=== PATIENT | male | born 1970 | race Caucasian/White ===

== ENCOUNTER 2022-01-31 17:31 | Inpatient (IN) | payer MEDICAID, SELFPAY ==
[2022-01-31] VITALS (33 sets, daily range): BP systolic 106–174; BP diastolic 65–104; PULSE 49–72; RESP 11–24; TEMP 36.1; O2SAT 95–100
--- NOTE | ~2022-01-31 | XR_ITS ---
XR chest 2V DATE: 01/31/2022 17:47 INDICATION: Upper left chest pain radiating down left arm. Headache. TECHNIQUE: PA and lateral views COMPARISON: None FINDINGS: Normal heart size. No hilar or mediastinal enlargement. No pulmonary infiltrate or consolid ation, pleural effusion or pulmonary vascular congestion or pneumothorax. Mild dextroscoliosis and degenerative spurring of the thoracic spine. IMPRESSION: No active cardiopulmonary disease Reviewed, dictated and finalized at location [facility].
--- NOTE | ~2022-01-31 | CT_ITS ---
EXAMINATION: CTA chest DATE: 01/31/2022 19:07 INDICATION: Chest pain radiating to left arm, back pain, shortness of breath, cold sweats. TECHNIQUE: Computed tomography (CT) of the chest was performed with 100 CC Omnipaque 350 intravenous contrast. Automated exposure control and iterative reconstruction technique were employed. Exam dose: 493.41 mGy-cm total exam DLP. COMPARISON: 01/31/2022 PA and lateral chest FINDINGS: Examination was optimized for contrast bolus in the thoracic aorta at time of scanning.. No thoracic aortic aneurysm or dissection. Normal heart size. No pericardial or pleural effusion. Calcified hilar and mediastinal nodes consistent with old granulomatous disease. No hilar or mediasti nal mass lesion or lymphadenopathy. No pulmonary infiltrate or consolidation or pulmonary mass lesion Normal morphology of the adrenal glands. Diffuse idiopathic skeletal hyperostosis of the thoracic spine. No suspicious osteolytic or osteoblas tic lesions are noted. IMPRESSION: No significant abnormality Reviewed, dictated and finalized at [facility]. Reviewed, dictated and finalized at location [facility]. IMPRESSION: No significant abnormality
--- NOTE | ~2022-01-31 | CT_ITS ---
EXAMINATION: CT brain wo con DATE: 01/31/2022 19:07 INDICATION: Headaches TECHNIQUE: Computed tomography (CT) of the head was performed without intravenous contrast. The mA wa s adjusted according to patient size. Iterative reconstruction technique was employed. Exam dose: 68 1.00 mGy-cm total exam DLP. COMPARISON: None FINDINGS: No intracranial mass lesion or hemorrhage or cerebrovascular accident. No midline shift or mass effect. Normal shaffer-white matter differentiation. Normal ventricular size. No subdural or epidur al hematoma is detected. The orbital contents are unremarkable. The mastoid air cells are normally developed and aerated. Prominent polyp or mucous retention cyst in the lower left maxillary sinus. Small retention cyst or p olyp in the lower right maxillary sinus. There is patchy opacification of ethmoid air cells bilateral ly and some opacification in the right frontoethmoid area. No fracture or bone destruction of the cranial vault. IMPRESSION: No significant intracranial abnormality Paranasal sinus findings as indicated above Reviewed, dictated and finalized at [facility]. Reviewed, dictated and finalized at location A.
--- NOTE | 2022-01-31 17:31 | ECG_ITS ---
Measurements Intervals [place] Rate: 54 P: 30 SD: 142 QRS: 4 QRSD: 100 T: 59 QT: 399 QTc: 380 Interpretive Statements SINUS BRADYCARDIA POSSIBLE RIGHT VENTRICULAR CONDUCTION DELAY [RSR (QR) IN V1/V2] NONSPECIFIC ST ABNORMALITY ABNORMAL ECG NO PREVIOUS ECG AVAILABLE FOR COMPARISON Electronically Signed On 02-01-2022 12:30:58 CDT by Jasiel Knight M.D.
--- NOTE | 2022-01-31 17:41 | ED.CHESTPAIN ---
HPI - Chest Pain General Chief Complaint: Chest Pain <JAXON Pavon Last Filed: 02/01/22 02:06> Stated Complaint: CHEST PAIN <JAXON Pavon Last Filed: 02/01/22 02:06> Time Seen by Provider: 01/31/22 17:36 <JAXON Pavon Last Filed: 02/01/22 02:06> Source: patient <JAXON Pavon Last Filed: 02/01/22 02:06> Mode of arrival: ambulatory <JAXON Pavon Last Filed: 02/01/22 02:06> Limitations: no limitations <JAXON Pavon Last Filed: 02/01/22 02:06> History of Present Illness HPI narrative: Patient is a 51-year-old male who presents the ED with report of chest pain. Patient reports he was driving approximately 45 minutes ago when he suddenly developed sharp left-sided chest pain. He began to not feel well and also reported having cold sweats, nausea, and SOB. The pain then began to radiate into his left shoulder and arm and he noted having numbness in his left fingers. He denied any aggravating or alleviating factors to the pain. He states the pain was rated a 10 out of 10 at first onset, but began to improve in the ED once going down to get x-ray, now rated 3-4/10. He denies any recent fever, back pain, cough, abdominal pain, vomiting, BLE pain or edema. Patient also mentions he has had intermittent headaches throughout the week. Patient has a history of diabetes and hypercholesteremia, but states he was able to control these with his diet. He does not currently take medication for either of these. <JAXON Pavon Last Filed: 02/01/22 02:06> Related Data Home Medications: Home Medications Medication Instructions Recorded Confirmed acetaminophen-codeine 1 tablet PO Q6H PRN 01/31/22 02/01/22 amoxicillin 500 mg PO Q8H 01/31/22 02/01/22 <JAXON Pavon Last Filed: 02/01/22 02:06> Allergies/Adverse Reactions: Allergies Allergy/AdvReac Type Severity Reaction Status Date / Time Penicillins Allergy Unknown Unknown Verified 01/31/22 18:03 <Miriam Cooper PA-C - Last Filed: 02/01/22 02:06> Review of Systems Review of Systems: CONSTITUTIONAL: Reports cold sweats. Denies fever. CARDIOVASCULAR: Reports left-sided chest pain, into the left shoulder/arm. Denies palpitations, or BLE edema. RESPIRATORY: Reports shortness of breath. Denies cough. GASTROINTESTINAL: Reports nausea. Denies abdominal pain, vomiting, or diarrhea. MUSCULOSKELETAL: Denies back pain, BLE pain, or myalgia. NEUROLOGIC: Reports numbness in left fingers, intermittent headache. Denies weakness. <Miriam Cooper PA-C - Last Filed: 02/01/22 02:06> All systems reviewed & are unremarkable except as noted in HPI and below <Miriam Cooper PA-C - Last Filed: 02/01/22 02:06> PMFSH Past Medical History Medical History: Medical History (Updated 02/01/22 @ 00:51 by Miriam Cooper PA-C) Diabetes mellitus Hypercholesterolemia <Miriam Cooper PA-C - Last Filed: 02/01/22 02:06> Surgical History Surgical History: Surgical History (Updated 01/31/22 @ 17:58 by Miriam Cooper PA-C) No pertinent past surgical history <Miriam Cooper PA-C - Last Filed: 02/01/22 02:06> Social History Social History: Social History (Updated 01/31/22 @ 17:58 by Miriam Cooper PA-C) Smoking status: Never smoker Substance use type: marijuana <Miriam Cooper PA-C - Last Filed: 02/01/22 02:06> Exam Narrative: GENERAL: Well appearing, well-nourished, non-toxic, in no acute distress. HEAD: Normocephalic, atraumatic. EYES: EOMI, PERRLA, no nystagmus. NECK: Supple. No adenopathy, no masses. RESPIRATORY: Airway patent, respirations nonlabored. Clear to auscultation bilaterally, no rales, rhonchi, wheezing. CARDIOVASCULAR: Bradycardic, regular rhythm without murmurs, rubs, or gallops. Peripheral pulses 2+ and equal bilaterally. ABDOMINAL: Soft, nontender, nondistended, no hepatosplenomegaly. Normoactive BS. MUSCULOSKELETAL: Moves all ex
[2022-01-31 18:04] LABS: Basophils Percent Auto 0.4 % (0.2-1.2); Eosinophils Absolute Auto 0.3 K/mm3 (0-0.3); Eosinophils Percent Auto 2.6 % (0-4.4); Hematocrit 41.1 % (42.0-52.0); Hemoglobin 14.4 g/dL (14.0-18.0); Immature Granulocyte Absolute 0.04 K/mm3 (0.00-0.031); Immature Granulocyte Percent A 0.4 % (0-0.5); Lymphocytes Absolute Auto 4.51 K/mm3 (0.9-3.2); Lymphocytes Percent Auto 46.5 % (18.3-44.2); Mean Corpuscular Hemoglobin 31.7 pg (26-34); Mean Corpuscular Volume 90.5 fl (80-100); Mean Platelet Volume 10.7 fl (7.4-10.4); Monocytes Absolute Auto 0.6 K/mm3 (0.1-0.6); Monocytes Percent Auto 6.4 % (2.6-8.5); Neutrophils Absolute Auto 4.2 K/mm3 (1.3-6.7); Neutrophils Percent Auto 43.7 % (45.5-73.1); Platelet Count Result 269 k/mm3 (150-375); Red Blood Count 4.54 M/mm3 (4.6-6.20); Red Cell Distribution Width 12.1 % (11.5-14.5); White Blood Count 9.7 K/mm3 (4.5-10.0)
[2022-01-31 18:17] LABS: Alanine Aminotransferase 31 U/L (4-50); Albumin Level 4.6 g/dL (3.5-5.1); Alkaline Phosphatase 86 U/L (38-126); Anion Gap 8 mmol/L (8-16); Aspartate Amino Transferase 27 U/L (17-59); Bilirubin,Total 0.7 mg/dL (0.2-1.3); Blood Urea Nitrogen 19 mg/dL (9-20); Carbon Dioxide 28 mmol/L (22-30); Chloride 100 mmol/L (98-107); Estimated CRCL calculation 90 ml/min; Estimated Glomerular Filt Rate > 60; Glucose 272 mg/dL (65-110); Lipase 72 U/L (23-300); Potassium 4.1 mmol/L (3.4-5.0); Sodium 136 mmol/L (137-145)
[2022-01-31 18:19] LABS: Prothrombin Time 12.5 Seconds (11.1-14.7)
[2022-01-31 18:20] LABS: Partial Thromboplastin Time 21.3 SECONDS (22.3-36.8)
[2022-01-31 18:27] LABS: Troponin I < 0.012 ng/mL (0.000-0.034)
[2022-01-31] MEDS: MORPHINE SULFATE (*CRX) 4 MG/ML INJ IV PUSH (18:41)
[2022-01-31] MEDS: ASPIRIN 81 MG CHEWABLE TABLET 324 MG PO (18:41)
[2022-01-31] MEDS: ONDANSETRON INJ 4 MG/2 ML VIAL IV PUSH (18:41)
[2022-01-31] MEDS: NITROGLYCERIN OINTMENT 1 INCH DOSE TRANSDERM (18:42)
[2022-01-31 18:47] LABS: D Dimer 0.27 ug/mL (<0.48)
[2022-01-31 21:23] LABS: Troponin I < 0.012 ng/mL (0.000-0.034)
--- NOTE | 2022-01-31 23:27 | ECG_ITS ---
Measurements Intervals [place] Rate: 51 P: 31 [place]: 158 QRS: 9 QRSD: 106 T: 13 QT: 432 QTc: 398 Interpretive Statements SINUS BRADYCARDIA POSSIBLE RIGHT VENTRICULAR CONDUCTION DELAY [RSR (QR) IN V1/V2] NONSPECIFIC T-WAVE ABNORMALITY ABNORMAL ECG COMPARED TO ECG 01/31/2022 17:35:02 T-WAVE ABNORMALITY NOW PRESENT Electronically Signed On 02-01-2022 12:35:39 CDT by Jasiel Knight M.D.
[2022-02-01] VITALS (28 sets, daily range): BP systolic 107–138; BP diastolic 58–79; PULSE 48–90; RESP 12–22; TEMP 35.9–37.1; O2SAT 97–100; BMI 21.1
[2022-02-01 00:15] LABS: Troponin I 0.096 ng/mL (0.000-0.034)
--- NOTE | 2022-02-01 01:26 | PM.IMHP ---
H&P: HPI History of Present Illness Date/Time: 02/01/22 01:26 Chief Complaint: Chest pain. Narrative: This is a 51-year-old male with past medical history significant for type 2 diabetes mellitus and dyslipidemia, patient is off of meds because he has been able to control his diet. Patient presents to the emergency room after sudden onset of chest pain localized to the precordial area with radiation to the shoulder and arm he rates the pain at the present time for out of 10 in intensity describe is as squeezing pain, patient denies any dizziness diaphoresis shortness of breath or any other accompanying symptoms with it. He has had daily headaches and blurry vision for roughly a week and has been having near syncopal episode as well but no syncope. Upon presentation to emergency room patient had nitro patch placed. Preliminary workup was significant for slightly elevated troponin. Patient is been admitted for further evaluation management and treatment. Review of Systems Review of Systems: Chest pain Constitutional: Constitutional: Denies chills, Denies fatigue, Denies fever(s), Denies lethargy, Denies night sweats and Denies weakness Eyes: Eyes: Reports blurry vision ENT: Denies dysphagia, Denies vertigo, Denies dizziness, Denies nasal congestion, Denies nasal discharge, Denies nasal obstruction and Denies odynophagia Cardiovascular: Cardiovascular: Reports chest pain, Denies chest pain at rest, Denies chest pain with activity, Denies pedal edema, Denies claudication, Denies leg edema, Reports radiating jaw, neck or arm pain, Denies palpitations, Denies dyspnea on exertion and Denies orthopnea Respiratory: Respiratory: Denies cough and Denies dyspnea Gastrointestinal: Gastrointestinal: Denies abdominal pain, Denies dyspepsia, Denies heartburn, Denies nausea and Denies vomiting Genitourinary: Genitourinary: Denies dysuria Musculoskeletal: Musculoskeletal: Denies arthralgias and Denies joint swelling Integumentary/Breasts: Skin/Breast: Denies rash Neurologic: Denies focal weakness and Denies Sensory deficit (Neuro) Psychiatric: Psychiatric: Reports no additional psychiatric complaints and Reports as per HPI Endocrine: Endocrine: Denies cold intolerance, Denies flushing, Denies heat intolerance, Denies polyphagia, Denies polydipsia and Denies palpitations Hematologic/Lymphatic: Hematologic/Lymphatic: Reports no additional hematologic/lymphatic complaints and Reports as per HPI Allergic/Immunologic: Allergic/Immunologic: Reports no additional allergic/immunologic complaints and Reports as per HPI PMFSH Past Medical History Medical History (Updated 02/01/22 @ 03:05 by Kasi Collado MD) Diabetes mellitus Hypercholesterolemia Surgical History Surgical History (Updated 01/31/22 @ 17:58 by Miriam Cooper PA-C) No pertinent past surgical history Family History Family History (Updated 02/01/22 @ 02:34 by Vernell Tilley RN) Father Diabetes mellitus Mother Hypertension Social History Social History (Updated 01/31/22 @ 17:58 by SUMIT PavonC) Smoking status: Former smoker Alcohol intake: current Drinks per week: 3 Substance use: current Substance use type: marijuana Spiritual care concerns: No Meds Home Medications and Allergies Home Medications Medication Instructions Recorded Confirmed Type acetaminophen-codeine 1 tablet PO Q6H PRN 01/31/22 02/01/22 History amoxicillin 500 mg PO Q8H 01/31/22 02/01/22 History hydrocodone-acetaminophen 1 tablet PO BID PRN 02/01/22 02/01/22 History Allergies Allergy/AdvReac Type Severity Reaction Status Date / Time Penicillins Allergy Unknown Unknown Verified 01/31/22 18:03 Vital Signs Vital Signs - 24 hr 01/31/22 17:38 01/31/22 18:22 01/31/22 18:31 Temperature 97 F L Pulse Rate 58 L 67 63 Respiratory Rate 16 17 24 H Blood Pressure 142/85 H 159/101 H 174/104 H Pulse Oximetry 100 100 100 01/31/22 18:32 01/31/22 19:09 0
[2022-02-01] MEDS: ENOXAPARIN 80 MG/0.8 ML SYRINGE 77 MG SUB-Q (01:45)
--- NOTE | 2022-02-01 01:45 | PC.NURSE ---
Sbar faxed and tubed to IMU for room 211.
--- NOTE | 2022-02-01 02:04 | PC.NURSE ---
This patient, Rafy Sommer, was admitted to IMU Room 211-01. Patient/family oriented to hospital policies and general routines including ID bracelet, bed and alarms, visiting hours, pain management, procedures, bathroom and other care routines, personal items, smoking policy, room service/diet, and visiting hours. Information on how to activate the Rapid Response Team has been discussed. Patient/Family are encouraged to report perceived risks to care and to ask questions if they do not understand what they are told or what they should do.
--- NOTE | 2022-02-01 02:08 | ADMGEN ---
This patient, Rafy Sommer, was admitted to IMU Room 211-01 on 02/01/22 at 0204. Patient/family oriented to hospital policies and general routines including ID bracelet, bed and alarms, visiting hours, pain management, procedures, bathroom and other care routines, personal items, smoking policy, room service/diet, and visiting hours. Information on how to activate the Rapid Response Team has been discussed. Patient/Family are encouraged to report perceived risks to care and to ask questions if they do not understand what they are told or what they should do.
--- NOTE | 2022-02-01 07:21 | PC.NURSE ---
Dr. Gerardo and Dr. Knight notified of critical Troponin 2.960, pt to remain NPO at this time. RN will continue to monitor.
--- NOTE | 2022-02-01 07:40 | PM.IMPN ---
Progress Note: A&P Assessment and Plan (1) Acute non-ST elevation myocardial infarction (NSTEMI): Code(s): I21.4 - Non-ST elevation (NSTEMI) myocardial infarction Status: Acute Assessment and Plan: troponin peaked to 2.96. cardiology consutled. awit their recs received lovenox last night. received aspirin. CTA negative PE, CXR negative. (2) Bradycardia: Code(s): R00.1 - Bradycardia, unspecified Status: Acute Assessment and Plan: Sinus bradycardia Continue to monitor (3) Diabetes mellitus: Code(s): E11.9 - Type 2 diabetes mellitus without complications Status: Acute Assessment and Plan: Diet controlled Continue to monitor add SSI. check a1c (4) Hypercholesterolemia: Code(s): E78.00 - Pure hypercholesterolemia, unspecified Status: Acute Assessment and Plan: Diet controlled Continue to monitor check LDL Subjective Date/time seen: 02/01/22 07:40 Interval history: HPI: This is a 51-year-old male with past medical history significant for type 2 diabetes mellitus and dyslipidemia, patient is off of meds because he has been able to control his diet. Patient presents to the emergency room after sudden onset of chest pain localized to the precordial area with radiation to the shoulder and arm he rates the pain at the present time for out of 10 in intensity describe is as squeezing pain, patient denies any dizziness diaphoresis shortness of breath or any other accompanying symptoms with it. He has had daily headaches and blurry vision for roughly a week and has been having near syncopal episode as well but no syncope. Upon presentation to emergency room patient had nitro patch placed. Preliminary workup was significant for slightly elevated troponin. Patient is been admitted for further evaluation management and treatment. 02/01/2022 no overniht events. denies any chest pain. feels a lot better. no nausea, vomitgn Review of Systems Review of Systems: All systems reviewed & are unremarkable except as noted in HPI and below (HPI) Exam Narrative: GENERAL: The patient is well developed, not in acute distress HEENT: Nonicteric sclerae, PERRLA, EOMI. Oropharynx clear. Moist mucous membranes. Conjunctivae appear well perfused. CHEST: Chest wall is nontender. HEART: Regular rate and rhythm without murmur, rubs, or gallops LUNGS: Clear to auscultation bilaterally. no respiratory distress ABDOMEN: Soft, positive bowel sounds, non-tender, no organomegaly. SKIN: No rash, no excessive bruising, petechiae, or purpura. NEUROLOGIC: Cranial nerves II-XII intact, alert and oriented x 3, no gross motor deficits EXTREMITIES: no edema, cyanosis or clubbing Objective Data Vital Signs Vital Signs: Vital Signs - 24 hr 01/31/22 17:38 01/31/22 18:22 01/31/22 18:31 Temperature 97 F L Pulse Rate 58 L 67 63 Respiratory Rate 16 17 24 H Blood Pressure 142/85 H 159/101 H 174/104 H Pulse Oximetry 100 100 100 01/31/22 18:32 01/31/22 19:09 01/31/22 19:16 Temperature Pulse Rate 63 63 Respiratory Rate 21 H 14 Blood Pressure 139/84 Pulse Oximetry 100 100 100 01/31/22 19:17 01/31/22 19:30 01/31/22 19:31 Temperature Pulse Rate 65 60 60 Respiratory Rate 13 15 14 Blood Pressure 138/86 Pulse Oximetry 100 95 97 01/31/22 19:54 01/31/22 19:58 01/31/22 20:13 Temperature Pulse Rate 61 60 66 Respiratory Rate 14 11 L Blood Pressure Pulse Oximetry 97 98 01/31/22 20:15 01/31/22 20:17 01/31/22 20:30 Temperature Pulse Rate 58 L 64 58 L Respiratory Rate 17 18 16 Blood Pressure 125/76 124/78 Pulse Oximetry 96 97 97 01/31/22 20:31 01/31/22 20:45 01/31/22 20:46 Temperature Pulse Rate 62 72 61 Respiratory Rate 14 19 16 Blood Pressure 111/65 Pulse Oximetry 98 96 97 01/31/22 21:06 01/31/22 21:15 01/31/22 21:33 Temperature Pulse Rate 59 L Respiratory Rate 16 Blood Pressure Pulse Oximetry 99 98 98 01/31/22
[2022-02-01] MEDS: AMOXICILLIN 500 MG CAPSULE PO (08:13)
[2022-02-01] MEDS: ACETAMINOPHEN/CODEINE (*CRX) 300/30 MG TABLET 1 TAB PO (08:14)
[2022-02-01 08:49] LABS: Cholesterol 278 mg/dL (0-200); HDL Direct 40 mg/dL; Triglycerides 274 mg/dL (<150)
[2022-02-01 09:00] LABS: LDL Cholesterol Direct 179 mg/dL
[2022-02-01] MEDS: ASPIRIN 81 MG ENTERIC TABLET PO (09:27)
--- NOTE | 2022-02-01 09:43 | PM.CNCAR ---
Assessment and Plan Assessment and plan (1) Acute non-ST elevation myocardial infarction (NSTEMI): Code(s): I21.4 - Non-ST elevation (NSTEMI) myocardial infarction Status: Acute Assessment and Plan: Patient has sustained a non ST elevation myocardial infarction. He has several risk factors for coronary disease which are uncontrolled. Three my order, I did give him 1 milligram/kilogram of enoxaparin last night. Nitroglycerin paste is in place. Aspirin 81 mg p.o. daily to be continued. I will also start him on rosuvastatin 20 mg p.o. daily. Will start losartan 12.5 mg p.o. daily also. He is a bit bradycardic and will hold off on metoprolol this point. I talked him about the risks benefits alternatives of cardiac catheterization. He verbalized understanding is agreeable. He will be kept NPO and coronary angiogram to be performed today. I will also order 2D echocardiogram with Doppler (2) Hypertension associated with diabetes: Code(s): E11.59 - Type 2 diabetes mellitus with other circulatory complications; I15.2 - Hypertension secondary to endocrine disorders Status: Acute Assessment and Plan: As detailed above. Diabetic management be deferred to the hospitalist. Will start losartan for BP control. (3) Hyperlipidemia associated with type 2 diabetes mellitus: Code(s): E11.69 - Type 2 diabetes mellitus with other specified complication; E78.5 - Hyperlipidemia, unspecified Status: Acute Assessment and Plan: Starting rosuvastatin (4) Tooth infection: Code(s): K04.7 - Periapical abscess without sinus Status: Acute Assessment and Plan: He has been on antibiotics for a couple of days. His white count is normal and he is not feverish. I did talk to the hospitalist will start him on IV antibiotics Edwina procedure History of Present Illness History of Present Illness Consult date/time: 02/01/22 09:43 Requesting physician: Miriam Cooper PA-C Consult reason: chest pain Reason For Visit: NSTEMI Narrative: Reason consultation: Non-STEMI, chest pain Date of service 02/01/2022 Requesting provider: Miriam Cooper History: Patient is a 51-year-old male who has diabetes and hyperlipidemia. He has been off medications for quite some time because previously he had really controlled his diet reportedly and had improved his numbers significantly to the point that his primary care provider took him off medications. He does readily admit though that over the past several months he has not been paying as much attention to his diet. His A1c was 11. He has been dealing with a tooth infection and was started on amoxicillin 2 days ago. LDL is also markedly elevated. He came to the hospital because of severe crushing chest pain. He states over the past week he was more short of breath and what he typically is with activity. 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 Yesterday though at about 4:30 p.m. he developed sudden onset of chest pain. It became very severe with radiation down the left arm into the fingers. He had numbness into the hand as well as pounding on the left side of his head. He was also nauseated, short of breath and diaphoretic. He came to the hospital and has since ruled in for myocardial infarction. Troponins are up trending. He has much improved symptoms but still has some slight residual discomfort. Review of Systems Review of Systems: All systems reviewed & are unremarkable except as noted in HPI and below Constitutional: Constitutional: Denies weakness Eyes: Eyes: Denies blurry vision ENT: Comments: Tooth pain Cardiovascular: Cardiovascular: Reports chest pain Respiratory: Respiratory: Reports dyspnea Gastrointestinal: Gastrointestinal: Denies abdominal pain Genitourinary: Genitourinary: Denies dysuria Musculoskeletal: Musculoskeletal: Denies neck
[2022-02-01] MEDS: SODIUM CHLORIDE 0.9% IV 1,000 ML 100 ML IV CONT (10:07)
[2022-02-01] MEDS: ROSUVASTATIN 10 MG TABLET 20 MG PO (10:30)
[2022-02-01] MEDS: AMPICILLIN SULB 3 GM/NS 100 ML 3 GM/100 ML VIAL IVPB ×3 (10:31→20:59)
--- NOTE | 2022-02-01 14:23 | WPDCARDPROC ---
Cardiac Cath Procedure Note Date of procedure:: 02/01/22 Performing physician:: Jah aRder MD Assessment and Plan Additional Plan PROCEDURE 1. LHC and Coronary anngiogram 2. PCI of subtotal occlusion of LCX culprit lesion of NSTEMI 3. IFR to LAD INDICATION NSTEMI HISTORY 51 Yrs old male presented with acute chest pain and found to have elevated troponin PROCEDURE DETAILS Consent was obtained Access site prepped and draped for procedure; Rt Radial Time out was done Sedation: moderate sedation with versed 1 mg and fentanyl 100 mcg, start time 13:22 and end time 14:17. Patient was under my supervision along with certified legal secretary specialist obtained with modified Seldinger technique Coronary angiogram was done with Tig catheter CORONARY ANGIOGRAM Left main: Bifurcates into LAD and LCX LAD: large vessel that reaches to apex and gives one large diagonal branch. LAD has mid 60% lesion LCX: Large non dominant and gives one large OM branch. distal LCX after OM has 99% lesion culprit lesion of NSTEMI RCA: Dominant vessel that gives rPDA and rPL Proximal RCA has 60% stenosis CORONARY INTERVENTION Guide catheter: CLS 3.5 Guide wire: Delectableurai used to cross to distal vessel under fluroscopy Anticoagulation: Heparin with target ACT > 250 sec Balloon dilation with done with NC quantum 2.5 * 15 mm balloon Stent was done with Orsiro 2.25 * 22 mm at lesion at 16 ALEJANDRO Post stent balloon dilation with NC quantum at 18 ALEJANDRO Pre-intervention: distal LCX lesion type B 99% stenosis, not previusly treated Post intervention: GUS 3 flow and 0 residual stenosis IFR to LAD IFR wire crossed to distal LAD after equalization and IFR measured at 0.90 COMPLICATIONS None CONCLUSIONS Successful PCI to distal LCX with one EMEKA Orsiro 2.25 * 22 mm post dilated with 2.5 NC balloon Moderate disease in LAD and RCA RECOMMENDATIONS DAPT TTE Statin
[2022-02-01 14:26] LABS: Activated Clotting Time 250 SEC (74-137)
[2022-02-01 14:26] LABS: Activated Clotting Time 202 SEC (74-137)
[2022-02-01] MEDS: SODIUM CHLORIDE 0.9% IV 1,000 ML 125 ML IV CONT (15:18)
--- NOTE | 2022-02-01 16:52 | PC.NURSE ---
Air removal from TR band began, will continue to monitor following hospital protocol.
[2022-02-01] MEDS: INSULIN ASPART (*BKC) 100 UNITS/ML SUB-Q (17:16)
[2022-02-01 17:32] LABS: Glucose Point of Care 206 mg/dl (65-105)
[2022-02-01 18:19] LABS: Glucose Point of Care 330 mg/dl (65-105)
--- NOTE | 2022-02-01 18:29 | PC.NURSE ---
1814 TR band removed from right radial site. Puncture CDI, no new drainage noted, area soft without s/s of hematoma. Tegaderm dressing applied. Pt tolerated well, will continue to monitor.
[2022-02-01 20:10] LABS: Glucose Point of Care 295 mg/dl (65-105)
[2022-02-01] MEDS: TICAGRELOR 90 MG TABLET PO (20:58)
[2022-02-01] MEDS: METOPROLOL TARTRATE 25 MG TABLET PO (20:58)
[2022-02-02] VITALS (9 sets, daily range): BP systolic 121–127; BP diastolic 66–79; PULSE 52–68; RESP 14–18; TEMP 36.6–36.8; O2SAT 98–99
--- NOTE | 2022-02-02 | ECHO_ITS ---
Patient Info Name: Rafy Sommer Age: 51 years : 1970 Gender: Male Ht: 70 in Wt: 143 lbs BSA: 1.78 m2 HR: 60 bpm BP: 121 / 66 mmHg Heart Rhythm: Sinus Rhythm Exam Date: 02/02/2022 8:33 AM Exam Location: [facility] Patient Status: Inpatient Admit Date: 02/01/2022 Staff Ordering Physician: Jasiel Knight MD Device Sales Consultant: Michelet Mcmullen, KOBI, RT Attending Provider: Jan Gerardo MD Referring Physician: Antonia GRIFFIN; Exam Type: CA echo doppler color flow Study Info Indications I21.4 - Non-ST elevation (NSTEMI) myocardial infarction Complete two-dimensional, color flow and Doppler transthoracic echocardiogram is performed. Strain analysis performed. Summary 1. Complete two-dimensional, color flow and Doppler transthoracic echocardiogram is performed. 2. Strain analysis performed. 3. Left ventricular chamber dimension is normal. 4. Left ventricular systolic function is normal, estimated at 60-65%. 5. There is mildly increased left ventricular wall thickness. 6. The left ventricular diastolic function is normal. 7. Global longitudinal strain is normal at -20 %. 8. The mid inferoseptal is hypokinetic. 9. There is mild mitral valve regurgitation. Left Ventricle Left ventricular chamber dimension is normal. Left ventricular systolic function is normal, estimated at 60-65%. There is mildly increased left ventricular wall thickness. The left ventricular diastolic function is normal. Global longitudinal strain is normal at -20 %. The mid inferoseptal is hypokinetic. Right Ventricle Right ventricular chamber dimension is normal. Right ventricular systolic function is normal. Left Atria Left atrial chamber dimension is normal. Right Atria Right atrial chamber dimension is normal. Atrial Septum Intact interatrial septum visualized by color flow imaging. Aortic Valve The aortic valve is trileaflet. There is no aortic valve sclerosis. There is no aortic valve stenosis. There is trace aortic valve regurgitation. Pulmonic Valve The pulmonic valve is normal. There is no pulmonic valve stenosis. There is trace pulmonic regurgitation. Mitral Valve The mitral valve has normal leaflets. There is no mitral valve stenosis. There is mild mitral valve regurgitation. Tricuspid Valve The tricuspid valve leaflets are normal. There is no significant tricuspid valve stenosis. There is trace tricuspid valve regurgitation. Pericardium/Pleural The pericardium appears normal. There is no pericardial effusion. Inferior Vena Cava Normal inferior vena cava with <50% collapse upon inspiration consistent with elevated right atrial pressure, 10 mmHg. Aorta The aortic root size at the sinus of Valsalva is normal. Left Ventricular Outflow Tract Name Value Normal LVOT 2D LVOT Diameter 2.0 cm LVOT Doppler LVOT Peak Gradient 8 mmHg LVOT Mean Gradient 4 mmHg LVOT VTI 26 cm LVOT VTI/AV VTI Ratio 1.0 LVOT Stroke Volume 83
[2022-02-02] MEDS: AMPICILLIN SULB 3 GM/NS 100 ML 3 GM/100 ML VIAL IVPB ×2 (04:10→09:05)
[2022-02-02 08:19] LABS: Glucose Point of Care 219 mg/dl (65-105)
[2022-02-02 08:55] LABS: Basophils Percent Auto 0.4 % (0.2-1.2); Eosinophils Absolute Auto 0.2 K/mm3 (0-0.3); Eosinophils Percent Auto 1.9 % (0-4.4); Hematocrit 39.6 % (42.0-52.0); Hemoglobin 13.6 g/dL (14.0-18.0); Immature Granulocyte Absolute 0.04 K/mm3 (0.00-0.031); Immature Granulocyte Percent A 0.5 % (0-0.5); Lymphocytes Absolute Auto 2.21 K/mm3 (0.9-3.2); Lymphocytes Percent Auto 26.6 % (18.3-44.2); Mean Corpuscular HGB Conc 34.3 g/dl (32-36); Mean Corpuscular Hemoglobin 31.7 pg (26-34); Mean Corpuscular Volume 92.3 fl (80-100); Mean Platelet Volume 10.5 fl (7.4-10.4); Monocytes Absolute Auto 0.7 K/mm3 (0.1-0.6); Monocytes Percent Auto 8.9 % (2.6-8.5); Neutrophils Absolute Auto 5.1 K/mm3 (1.3-6.7); Neutrophils Percent Auto 61.7 % (45.5-73.1); Platelet Count Result 206 k/mm3 (150-375); Red Blood Count 4.29 M/mm3 (4.6-6.20); Red Cell Distribution Width 12.1 % (11.5-14.5); White Blood Count 8.3 K/mm3 (4.5-10.0)
[2022-02-02] MEDS: TICAGRELOR 90 MG TABLET PO (08:55)
[2022-02-02] MEDS: ASPIRIN 81 MG ENTERIC TABLET PO (08:56)
[2022-02-02] MEDS: ROSUVASTATIN 10 MG TABLET 20 MG PO (08:56)
[2022-02-02] MEDS: METOPROLOL TARTRATE 25 MG TABLET PO (08:56)
[2022-02-02] MEDS: LOSARTAN POTASSIUM 12.5 MG TABLET PO (08:56)
[2022-02-02] MEDS: INSULIN ASPART (*BKC) 100 UNITS/ML SUB-Q ×2 (09:00→13:24)
[2022-02-02 09:06] LABS: Anion Gap 1 mmol/L (8-16); Blood Urea Nitrogen 11 mg/dL (9-20); Calcium 8.6 mg/dL (8.4-10.2); Carbon Dioxide 29 mmol/L (22-30); Chloride 105 mmol/L (98-107); Estimated CRCL calculation 104 ml/min; Estimated Glomerular Filt Rate > 60; Glucose 216 mg/dL (65-110); Magnesium 1.9 mg/dL (1.6-2.3); Potassium 3.9 mmol/L (3.4-5.0); Sodium 135 mmol/L (137-145)
--- NOTE | 2022-02-02 09:45 | PM.PNCARD ---
Progress Note: A&P Assessment and Plan (1) Acute non-ST elevation myocardial infarction (NSTEMI): Code(s): I21.4 - Non-ST elevation (NSTEMI) myocardial infarction Status: Acute Assessment and Plan: Patient has sustained a non ST elevation myocardial infarction. He has several risk factors for coronary disease which are uncontrolled. Underwent PCI to the circumflex artery yesterday details as below. Continue aspirin Continue Brilinta. He has been provided with free samples and a 5 dollar co-pay card. Continue losartan Continue metoprolol-this can be shifted to succinate upon discharge Continue statin Lifestyle modifications for CAD risk reduction Echocardiogram showed normal systolic function, EF 60-65%. No significant valve abnormalities. Stable for discharge home today from a cardiac perspective. (2) Hypertension associated with diabetes: Code(s): E11.59 - Type 2 diabetes mellitus with other circulatory complications; I15.2 - Hypertension secondary to endocrine disorders Status: Acute Assessment and Plan: As detailed above. Diabetic management be deferred to the hospitalist. Will start losartan for BP control. (3) Hyperlipidemia associated with type 2 diabetes mellitus: Code(s): E11.69 - Type 2 diabetes mellitus with other specified complication; E78.5 - Hyperlipidemia, unspecified Status: Acute Assessment and Plan: Starting rosuvastatin (4) Tooth infection: Code(s): K04.7 - Periapical abscess without sinus Status: Acute Assessment and Plan: He has been on antibiotics for a couple of days. His white count is normal and he is not feverish. Received IV antibiotics torsten-procedurally Additional Plan PROCEDURE 1. LHC and Coronary anngiogram 2. PCI of subtotal occlusion of LCX culprit lesion of NSTEMI 3. IFR to LAD INDICATION NSTEMI HISTORY 51 Yrs old male presented with acute chest pain and found to have elevated troponin PROCEDURE DETAILS Consent was obtained Access site prepped and draped for procedure; Rt Radial Time out was done Sedation: moderate sedation with versed 1 mg and fentanyl 100 mcg, start time 13:22 and end time 14:17. Patient was under my supervision along with sap data analyst obtained with modified Seldinger technique Coronary angiogram was done with Tig catheter CORONARY ANGIOGRAM Left main: Bifurcates into LAD and LCX LAD: large vessel that reaches to apex and gives one large diagonal branch. LAD has mid 60% lesion LCX: Large non dominant and gives one large OM branch. distal LCX after OM has 99% lesion culprit lesion of NSTEMI RCA: Dominant vessel that gives rPDA and rPL Proximal RCA has 60% stenosis CORONARY INTERVENTION Guide catheter: CLS 3.5 Guide wire: Tci used to cross to distal vessel under fluroscopy Anticoagulation: Heparin with target ACT > 250 sec Balloon dilation with done with NC quantum 2.5 * 15 mm balloon Stent was done with Orsiro 2.25 * 22 mm at lesion at 16 ALEJANDRO Post stent balloon dilation with NC quantum at 18 ALEJANDRO Pre-intervention: distal LCX lesion type B 99% stenosis, not previusly treated Post intervention: GUS 3 flow and 0 residual stenosis IFR to LAD IFR wire crossed to distal LAD after equalization and IFR measured at 0.90 COMPLICATIONS None CONCLUSIONS Successful PCI to distal LCX with one EMEKA Orsiro 2.25 * 22 mm post dilated with 2.5 NC balloon Moderate disease in LAD and RCA RECOMMENDATIONS DAPT TTE Statin Subjective Date/time seen: 02/02/22 09:45 Cardiology follow up for NSTEMI I feel great. Patient does not have any complaints today. He is denying any chest pain, shortness of breath. He was stable overnight with no acute events. No ectopy on telemetry. Review of Systems Review of Systems: All systems reviewed & are unremarkable except as noted in HPI and below Constitutional: Constitutional: Denies fatigue, Denies headache(s) and Denies weakne
[2022-02-02 12:18] LABS: Glucose Point of Care 206 mg/dl (65-105)
[2022-02-02] MEDS: INSULIN ASPART (*BKC) 100 UNITS/ML 6 UNITS SUB-Q (13:25)
--- NOTE | 2022-02-02 14:58 | PM.DS ---
DS: Admitting Diagnosis Discharge Date 02/02/2022 Admitting Diagnosis NSTEMI DS: Discharge Diagnosis Discharge Diagnosis (1) Acute non-ST elevation myocardial infarction (NSTEMI): Code(s): I21.4 - Non-ST elevation (NSTEMI) myocardial infarction Status: Acute (2) Diabetes mellitus: Code(s): E11.9 - Type 2 diabetes mellitus without complications Status: Acute (3) Tooth infection: Code(s): K04.7 - Periapical abscess without sinus Status: Acute (4) Hyperlipidemia associated with type 2 diabetes mellitus: Code(s): E11.69 - Type 2 diabetes mellitus with other specified complication; E78.5 - Hyperlipidemia, unspecified Status: Acute DS: Summary Hospital Course Hospital Course: 11-year-old male with past medical history significant for type 2 diabetes mellitus and dyslipidemia, patient is off of meds because he has been able to control his diet presented with chest pain, found to have NSTEMI, cardiology was consulted, underwent LHC with PCI to circumflex. Post cath stay was unremarkable. Stated on insulin therapy for his uncontrolled diabetes mellitus. Discharged home in stable condition Status at Discharge Functional status at discharge: independent ambulation Overall status at discharge: patient is back to baseline Time Spent with Patient Time attestation: Total time spent providing and/or coordinating discharge services: Time spent: Greater than 30 minutes Exam Const: General: comfortable and no acute distress Limitations: no limitations HENMT: Mouth: Yes Abnormal oral and palatal mucosa present Eyes: Sclera: sclerae normal Pupils: Equal, round and reactive pupils present Neck: Neck: supple Resp: Auscultation: clear to auscultation bilaterally Cardio: Rate: regular rate Rhythm: regular rhythm GI: GI Palp: Yes Soft to palpation Auscultation: normal bowel sounds Skin: General skin exam: normal color Psych: Mental Status: mental status grossly normal DS: Data Data Completed and Pending Labs on day of discharge: Labs from last 24 hours 02/02/22 02/02/22 02/02/22 11:44 08:47 08:47 WBC 8.3 RBC 4.29 L Hgb 13.6 L Hct 39.6 L MCV 92.3 MCH 31.7 MCHC 34.3 RDW 12.1 Plt Count 206 MPV 10.5 H Immature Gran % (Auto) 0.5 Neut % (Auto) 61.7 Lymph % (Auto) 26.6 [place] % (Auto) 8.9 H Eos % (Auto) 1.9 Baso % (Auto) 0.4 Lymph # (Auto) 2.21 [place] # (Auto) 0.7 H Eos # (Auto) 0.2 Baso # (Auto) 0.0 Abs Immat Gran (auto) 0.04 H Absolute Neuts (auto) 5.1 Absolute Nucleated RBC 0.0 Nucleated RBC % 0.0 Sodium 135 L Potassium 3.9 Chloride 105 Carbon Dioxide 29 Anion Gap 1 L BUN 11 D Creatinine 0.70 Estim Creat Clear Calc 104 Estimated GFR > 60 Glucose 216 H POC Capillary Glucose 206 H Calcium 8.6 Magnesium 1.9 Troponin I 02/02/22 02/01/22 02/01/22 08:13 20:23 20:07 WBC RBC Hgb Hct MCV MCH MCHC RDW Plt Count MPV Immature Gran % (Auto) Neut % (Auto) Lymph % (Auto) [place] % (Auto) Eos % (Auto) Baso % (Auto) Lymph # (Auto) [place] # (Auto) Eos # (Auto) Baso # (Auto) Abs Immat Gran (auto) Absolute Neuts (auto) Absolute Nucleated RBC Nucleated RBC % Sodium Potassium Chloride Carbon Dioxide Anion Gap BUN Creatinine Estim Creat Clear Calc Estimated GFR Glucose POC Capillary Glucose 219 H 295 H Calcium Magnesium Troponin I 2.860 H* 02/01/22 02/01/22 18:13 15:11 WBC RBC Hgb Hct MCV MCH MCHC RDW Plt Count MPV Immature Gran % (Auto) Neut % (Auto) Lymph % (Auto) [place] % (Auto) Eos % (Auto) Baso % (Auto) Lymph # (Auto) [place] # (Auto) Eos # (Auto) Baso # (Auto) Abs Immat Gran (auto) Absolute Neuts (auto) Absolute Nucleated RBC Nucleated RBC % Sodium Potassium
== END 2022-02-02 16:15 | disposition home or self-care (01) | DRG 174 ==
LOC: ANHED 02-01 00:51 → ANHIMU 02-01 01:41
PROVIDERS: Internal Medicine; Internal Medicine Interventional Cardiology; Physician Assistant; Admitting Provider Internal Medicine; Emergency Provider Emergency Medicine; PCP Emergency Medicine; Visit Provider Internal Medicine
PROC: 4A023N7 Measurement of Cardiac Sampling and Pressure, Left Heart, Percutaneous Approach (ICD-10-PCS; CPT 93452; principal; 2022-02-01 11:30)
PROC: 027034Z Dilation of Coronary Artery, One Artery with Drug-eluting Intraluminal Device, Percutaneous Approach (ICD-10-PCS; CPT 92928; 2022-02-01 11:30)
PROC: 4A033BC Measurement of Arterial Pressure, Coronary, Percutaneous Approach (ICD-10-PCS; CPT 93571; 2022-02-01 11:30)
DX: I21.4 Non-ST elevation (NSTEMI) myocardial infarction (principal); E11.59 Type 2 diabetes mellitus with other circulatory complications; E11.69 Type 2 diabetes mellitus with other specified complication; E78.5 Hyperlipidemia, unspecified; I25.10 Atherosclerotic heart disease of native coronary artery without angina pectoris; R55 Syncope and collapse; K04.7 Periapical abscess without sinus; R77.8 Other specified abnormalities of plasma proteins; Z87.891 Personal history of nicotine dependence; Z88.0 Allergy status to penicillin; Z28.21 Immunization not carried out because of patient refusal
CPT/HCPCS: 36415; 70450; 71046; 71275; 80048; 80053; 80061; 82948; 83036; 83690; 83735; 84484; 85025; 85380; 85610; 85730; 93005; 93306; 93458; 93571; 96372; 96374; 96375; 99285; A9270; C1725; C1769; C1874; C1887; C1894; C9600; G0378; J0131; J0153; J0295; J1644; J1650; J1815; J2250; J2270; J2405; J3010; J7030; Q9967

== ENCOUNTER 2022-03-30 16:30 | Outpatient (RCR) | payer MEDICAID, SELFPAY | END 2022-04-16 08:21 | disposition home or self-care (01) | LOC: ANHCPREHAB 16:30 | PROVIDERS: PCP Emergency Medicine; Visit Provider Nurse Practitioner | DX: Z95.5 Presence of coronary angioplasty implant and graft (principal) | CPT/HCPCS: 93798 ==

== ENCOUNTER 2022-07-29 19:42 | Emergency (ER) | payer OTHER, SELFPAY ==
[2022-07-29 19:55] VITALS: BP 138/84; PULSE 60; RESP 18; TEMP 36.5; O2SAT 100
== END 2022-07-29 20:00 | disposition left against medical advice (07) ==
PROVIDERS: PCP Physician Assistant
DX: K08.89 Other specified disorders of teeth and supporting structures (principal)
CPT/HCPCS: 99199

== ENCOUNTER 2022-08-05 15:46 | Inpatient (IN) | payer OTHER, SELFPAY ==
[2022-08-05] VITALS (13 sets, daily range): BP systolic 114–129; BP diastolic 70–81; PULSE 54–69; RESP 13–19; TEMP 36.6–36.7; O2SAT 97–99; BMI 24.0
--- NOTE | 2022-08-05 15:47 | ECG_ITS ---
Measurements Intervals [place] Rate: 54 P: 0 CA: 158 QRS: 7 QRSD: 110 T: -2 QT: 434 QTc: 412 Interpretive Statements SINUS BRADYCARDIA RSR' IN V1 OR V2, CONSIDER RIGHT VENTRICULAR HYPERTROPHY OR RIGHT VCD VOLTAGE CRITERIA FOR LVH BORDERLINE ST-T WAVE ABNORMALITY- INFERIOR LEADS BASELINE WANDER- V4-V6 BORDERLINE ECG COMPARED TO ECG 01/31/2022 23:30:48 NO SIGNIFICANT CHANGES Electronically Signed On 08-05-2022 16:05:01 CDT by Jeffery Graf D.O.
--- NOTE | 2022-08-05 15:52 | ED.CHESTPAIN ---
HPI - Chest Pain General Chief Complaint: Chest Pain Stated Complaint: STEMI Time Seen by Provider: 08/05/22 15:47 Source: RN notes reviewed History of Present Illness HPI narrative: Patient presents emergency department from cardiology office for STEMI. The patient been seen in the cardiology office today he has a history of a heart attack approximately 6 months ago stent placed in the office the patient has been noted he been having some intermittent chest pain today with last episode of chest pain at 1 PM the pain is located over the midsternal chest described as a pressue. With associated with shortness of breath and nausea and vomiting EKG was done in the office showing a STEMI and the patient was sent to the ER for further evaluation patient states he is on Brilinta and aspirin which she has been taking. He states currently he has no chest pain Related Data Home Medications Medication Instructions Recorded Confirmed metformin 500 mg tablet 500 mg PO BID 03/30/22 03/30/22 Allergies Allergy/AdvReac Type Severity Reaction Status Date / Time Penicillins Allergy Unknown Unknown Verified 01/31/22 18:03 Review of Systems Review of Systems: Gen.: Denies fevers or chills ENT: Denies congestion Respiratory: Reports shortness of breath or chest pain CV: See HPI GI: Denies abdominal pain diarrhea reports nausea vomiting Musculoskeletal: Denies back pain or muscle pain Neuro: Denies numbness, tingling, weakness or focal weakness Skin: Denies rash Except as documented, all other systems reviewed and negative [facility] Past Medical History Medical History (Updated 08/05/22 @ 16:10 by Calvin Haines DO) Coronary artery disease Diabetes mellitus Hypercholesterolemia Surgical History Surgical History No pertinent past surgical history Family History Family History Father Diabetes mellitus Mother Hypertension Social History Social History Smoking packs per day: 0.5 Smoking cigarettes per day: 10.0 Years smoked: 2 Smoking pack-years: 1.00 Smoking status: Former smoker Tobacco type: cigarettes Alcohol intake: current Drinks per week: 3 Substance use: current Substance use type: marijuana Spiritual care concerns: No Exam Narrative: APPEARANCE: No acute distress, nontoxic, resting in bed EYES: EOMI HEENT: Normocephalic, atraumatic, OMM RESPIRATORY: No respiratory distress Clear to auscultation bilaterally with no rhonchi wheezing or rales. CARDIOVASCULAR: Regular rate and rhythm without murmurs rubs or gallops. ABDOMINAL: Soft, nontender, nondistended, no rebound or guarding MUSCULOSKELETAl: Moves all extremities. No clubbing, cyanosis or edema. NEURO: Awake and alert. Following commands, speech normal, no focal deficits SKIN:: Warm, dry. No rashes lesions or abrasions PSYCHIATRIC: Normal affect/mood, Course Course Emergency Course: Reviewed EKG from office showing ST elevation Discussed with Dr. Avelar for cardiology will plan to take patient to Checking Department Supervisor at this time Dr. Weiss down in the emergency department to evaluate the patient The patient plan for Cardiac Checking Department Supervisor Vital Signs Vital signs: Vital Signs Temperature 98.0 F 08/05/22 16:06 Pulse Rate 54 L 08/05/22 16:06 Respiratory Rate 18 08/05/22 16:06 Blood Pressure 114/70 08/05/22 16:06 Pulse Oximetry 98 08/05/22 16:06 Oxygen Delivery Room Air 08/05/22 16:06 Temperature 98.0 F 08/05/22 16:06 Pulse Rate 54 L 08/05/22 16:11 Respiratory Rate 18 08/05/22 16:06 Blood Pressure 114/70 08/05/22 16:06 Pulse Oximetry 98 08/05/22 16:06 Oxygen Delivery Room Air 08/05/22 16:06 MDM - Chest Pain Lab Data Result diagrams: 08/05/22 15:59 08/05/22 15:59 Labs: Lab Results 08/05/2207/17
[2022-08-05 16:10] LABS: Basophils Percent Auto 0.4 % (0.2-1.2); Eosinophils Absolute Auto 0.7 K/mm3 (0-0.3); Eosinophils Percent Auto 6.8 % (0-4.4); Hematocrit 41.4 % (42.0-52.0); Hemoglobin 14.2 g/dL (14.0-18.0); Immature Granulocyte Absolute 0.04 K/mm3 (0.00-0.031); Immature Granulocyte Percent A 0.4 % (0-0.5); Lymphocytes Absolute Auto 4.54 K/mm3 (0.9-3.2); Lymphocytes Percent Auto 41.4 % (18.3-44.2); Mean Corpuscular HGB Conc 34.3 g/dl (32-36); Mean Corpuscular Volume 90.4 fl (80-100); Mean Platelet Volume 10.7 fl (7.4-10.4); Monocytes Absolute Auto 0.8 K/mm3 (0.1-0.6); Monocytes Percent Auto 7.2 % (2.6-8.5); Neutrophils Absolute Auto 4.8 K/mm3 (1.3-6.7); Neutrophils Percent Auto 43.8 % (45.5-73.1); Platelet Count Result 252 k/mm3 (150-375); Red Blood Count 4.58 M/mm3 (4.6-6.20)
--- NOTE | 2022-08-05 16:13 | PC.NURSE ---
VORB from Dr. Haines to give 324 mg aspirin VORB from Dr. Epstein to give 5000 units heparin
[2022-08-05 16:20] LABS: Alanine Aminotransferase 46 U/L (6-50); Alkaline Phosphatase 63 U/L (38-126); Anion Gap 13 mmol/L (8-16); Aspartate Amino Transferase 37 U/L (17-59); Bilirubin,Total 0.9 mg/dL (0.2-1.3); Blood Urea Nitrogen 23 mg/dL (9-20); Calcium 9.5 mg/dL (8.4-10.2); Carbon Dioxide 26 mmol/L (22-30); Chloride 99 mmol/L (98-107); Cholesterol 108 mg/dL (0-200); Estimated CRCL calculation 100 ml/min; Estimated Glomerular Filt Rate > 60; Glucose 162 mg/dL (65-110); HDL Direct 51 mg/dL; Potassium 3.9 mmol/L (3.4-5.0); Sodium 138 mmol/L (137-145); Triglycerides 107 mg/dL (<150)
[2022-08-05 16:22] LABS: Prothrombin Time 13.2 Seconds (11.1-14.7)
[2022-08-05 16:23] LABS: Partial Thromboplastin Time 23.7 SECONDS (22.3-36.8)
[2022-08-05 16:30] LABS: LDL Cholesterol Direct 44 mg/dL
[2022-08-05 16:33] LABS: Troponin I < 0.012 ng/mL (0.000-0.034)
--- NOTE | 2022-08-05 17:05 | WPDMODSED ---
Moderate Sedation Note-Pt Data Patient Data Diagnosis: Possible STEMI Present Complaint: Chest pain Procedure to be performed/Plan: Cardiac cath Allergies Allergy/AdvReac Type Severity Reaction Status Date / Time Penicillins Allergy Unknown Unknown Verified 01/31/22 18:03 Home Medications Medication Instructions Recorded Confirmed Type aspirin 81 mg tablet,delayed 81 mg PO QAM #90 tabs 02/02/22 02/13/22 Rx release losartan 25 mg tablet 12.5 mg PO DAILY #30 tabs 02/02/22 02/13/22 Rx metoprolol tartrate 25 mg tablet 25 mg PO Q12HR 30 days #60 tabs 02/02/22 02/13/22 Rx rosuvastatin 10 mg tablet (Crestor) 20 mg PO QAM #60 tabs 02/02/22 02/13/22 Rx ticagrelor 90 mg tablet (Brilinta) 90 mg PO Q12HR #60 tabs 02/02/22 02/13/22 Rx metformin 500 mg tablet 500 mg PO BID 03/30/22 03/30/22 History Current Medications: Active Medications Aspirin (Aspirin 81 Mg Enteric Tablet) 81 mg PO QAM SONALI Sodium Chloride (Normal Saline Iv) 1,000 mls @ 125 mls/hr IV CONT .Q8H ONE Stop: 08/06/22 00:52 Losartan Potassium (Losartan Potassium 12.5 Mg Tablet) 12.5 mg PO DAILY SONALI Metoprolol Tartrate (Metoprolol Tartrate 25 Mg Tablet) 25 mg PO Q12HR SONALI Rosuvastatin Calcium (Rosuvastatin 10 Mg Tablet) 20 mg PO QAM SONALI Ticagrelor (Ticagrelor 90 Mg Tablet) 90 mg PO Q12HR SONALI Sedation/Anesthesia: No previous sedation/anesthesia problems (including family history). [facility] Past Medical History Medical History Coronary artery disease Diabetes mellitus Hypercholesterolemia Surgical History Surgical History No pertinent past surgical history Family History Family History Father Diabetes mellitus Mother Hypertension Social History Social History Smoking packs per day: 0.5 Smoking cigarettes per day: 10.0 Years smoked: 2 Smoking pack-years: 1.00 Smoking status: Former smoker Tobacco type: cigarettes Alcohol intake: current Drinks per week: 3 Substance use: current Substance use type: marijuana Spiritual care concerns: No Mod Sed Physical Exam Physical Exam Pre Procedural Exam: Normal: Appearance, Heart Rate, Heart Rhythm, Neuro Exam, Abdomen, Extremities and Skin Hours since solid foods: 6 Hours since liquid intake: 4 Mallampati Classification: class II Internal Medicine - PN: Obj Da Vital Signs Vital Signs: Vital Signs - 24 hr 08/05/22 16:06 08/05/22 16:11 Temperature 36.7 C Pulse Rate 54 L 54 L Respiratory Rate 18 Blood Pressure 114/70 Pulse Oximetry 98 Oxygen Delivery Room Air Meds/Results Medications: Active Medications Generic Name Dose Route Start Last Admin Trade Name Freq PRN Reason Stop Dose Admin Aspirin 81 mg 08/06/22 09:00 Aspirin 81 Mg Enteric Tablet PO QAM [facility] Sodium Chloride 1,000 mls @ 125 mls/hr 08/05/22 16:53 Normal Saline Iv IV CONT 08/06/22 00:52 .Q8H ONE Losartan Potassium 12.5 mg 08/06/22 09:00 Losartan Potassium 12.5 Mg Tablet PO DAILY [facility] Metoprolol Tartrate 25 mg 08/05/22 21:00 Metoprolol Tartrate 25 Mg Tablet PO Q12HR [facility] Rosuvastatin Calcium 20 mg 08/06/22 09:00 Rosuvastatin 10 Mg Tablet PO QAM [facility] Ticagrelor 90 mg 08/06/22 09:00 Ticagrelor 90 Mg Tablet PO Q12HR [facility] Labs CBC & Chem 7: 08/05/22 15:59 08/05/22 15:59 Labs: Laboratory Results - last 24 hr 08/05/22 08/05/22 08/05/22 15:59 15:59 15:59 WBC 11.0 H RBC 4.58 L Hgb 14.2 Hct 41.4 L MCV 90.4 MCH 31.0 MCHC 34.3 RDW 12.0 Plt Count 252 MPV 10.7 H Immature Gran % (Auto) 0.4 Neut % (Auto) 43.8 L Lymph % (Auto) 41.4 [place] % (Auto) 7.2 Eos % (Auto) 6.8 H Baso % (Auto) 0.4 Lymph # (Auto) 4.54 H [place] # (Auto) 0.8 H
--- NOTE | 2022-08-05 17:07 | PM.IMHP ---
H&P: HPI History of Present Illness Date/Time: 08/05/22 17:07 Chief Complaint: Chest pain Narrative: Patient is a 51-year-old male with a history of CAD s/p LCX PCI in 01/2022 for NSTEMI who presented to [facility] [place] for visit with Dr. Knight. Patient had reported nausea/vomiting yesterday evening with some chest pain episodes this morning. ECG done in clinic was concerning for possible STEMI with ST elevation in 1 and AVL with depressions in the inferior leads. Given these findings, patient taken to ED for STEMI. Patient does report full compliance to his medications, has not missed any doses of his DAPT. Repeat ECG in the ED had improved ST segments. Emergent cardiac cath was done which showed widely patent distal LCX stent, otherwise NOCAD. LVEDP 13mmHg. Patient was without chest pain upon arrival to manager laboratory and throughout procedure. Only complaint at this time is tooth pain. Review of Systems Review of Systems: All systems reviewed & are unremarkable except as noted in HPI and below (HPI) [facility] Past Medical History Medical History Coronary artery disease Diabetes mellitus Hypercholesterolemia Surgical History Surgical History No pertinent past surgical history Family History Family History Father Diabetes mellitus Mother Hypertension Social History Social History Smoking packs per day: 0.5 Smoking cigarettes per day: 10.0 Years smoked: 2 Smoking pack-years: 1.00 Smoking status: Former smoker Tobacco type: cigarettes Alcohol intake: current Drinks per week: 3 Substance use: current Substance use type: marijuana Spiritual care concerns: No Meds Home Medications and Allergies Home Medications Medication Instructions Recorded Confirmed Type aspirin 81 mg tablet,delayed 81 mg PO QAM #90 tabs 02/02/22 02/13/22 Rx release losartan 25 mg tablet 12.5 mg PO DAILY #30 tabs 02/02/22 02/13/22 Rx metoprolol tartrate 25 mg tablet 25 mg PO Q12HR 30 days #60 tabs 02/02/22 02/13/22 Rx rosuvastatin 10 mg tablet (Crestor) 20 mg PO QAM #60 tabs 02/02/22 02/13/22 Rx ticagrelor 90 mg tablet (Brilinta) 90 mg PO Q12HR #60 tabs 02/02/22 02/13/22 Rx metformin 500 mg tablet 500 mg PO BID 03/30/22 03/30/22 History Allergies Allergy/AdvReac Type Severity Reaction Status Date / Time Penicillins Allergy Unknown Unknown Verified 01/31/22 18:03 Vital Signs Vital Signs - 24 hr 08/05/22 16:06 08/05/22 16:11 Temperature 36.7 C Pulse Rate 54 L 54 L Respiratory Rate 18 Blood Pressure 114/70 Pulse Oximetry 98 Oxygen Delivery Room Air Exam Const: General: comfortable and no acute distress HENMT: Mouth: Yes moist mucous membranes Neck: Neck: no JVD Resp: Effort & Inspection: normal respiratory effort Auscultation: clear to auscultation bilaterally Cardio: Rate: regular rate Rhythm: regular rhythm Heart sounds: no murmurs GI: GI Palp: Yes Soft to palpation and No Tenderness to palpation present (GI) Skin: General skin exam: normal color Neuro: Speech: normal speech Psych: Mental Status: mental status grossly normal H&P: Results Labs Labs: Short CBC 08/05/22 Range/Units 15:59 WBC 11.0 H (4.5-10.0) K/mm3 Hgb 14.2 (14.0-18.0) g/dL Hct 41.4 L (42.0-52.0) % Plt Count 252 (150-375) k/mm3 BMP 08/05/22 15:59 Sodium 138 Potassium 3.9 Chloride 99 Carbon Dioxide 26 BUN 23 H D Creatinine 0.80 Glucose 162 H Calcium 9.5 Cardiac Enzymes 08/05/22 Range/Units 15:59 Troponin I < 0.012 (0.000-0.034) ng/mL Liver Function 08/05/22 Range/Units 15:59 Total Bilirubin 0.9 (0.2-1.3) mg/dL AST 37 (17-59) U/L ALT 46 (6-50) U/L Alkaline Phosphatase 63 (38-126) U/L Albumin 5.0 (3.5-5.1)
--- NOTE | 2022-08-05 17:14 | WPDCARDPROC ---
Cardiac Cath Procedure Note Date of procedure:: 08/06/22 Performing physician:: CATHETERIZATION LABORATORY REPORT Procedure Date: 08/05/2022 Java Mobile Developer: Janes Avelar M.D., [facility]? Referring Physician: Star Knight M.D. Anesthesia: Versed and Fentanyl were ordered and given in my presence at 16:16, procedure ended at 16:39. Supervision of nurse monitored moderate sedation with Versed and Fentanyl was provided for 23 minutes. Total of 2mg of Versed and 50mcg of Fentanyl administered by Mixer Attendant RN. Pre-op Diagnosis: Possible high-lateral STEMI Post-op Diagnosis: Widely patent distal LCX stent Mild disease of LAD Moderate disease of proximal RCA, which appears angiographically unchanged compared to prior angiogram from 01/2022 Left ventricular end-diastolic pressure of 13mmHg Procedure(s): Left heart catheterization with coronary angiography Access Site: Right radial artery Brief History and Clinical Indications: Patient is a 51-year-old male with a history of CAD s/p PCI, hypertension, hyperlipidemia, and diabetes who is referred for emergent cardiac cath for possible STEMI. Patient underwent PCI to the distal LCX with EMEKA x 1 in 01/2022 for an NSTEMI. Patient presented to Cardiology Clinic today where he mentioned he had chest pain earlier in the day. ECG in the clinic concerning for high-lateral STEMI. All risks, benefits and alternatives to left heart catheterization with or without percutaneous coronary intervention was discussed at length with the patient. Risk of complications including but not limited to bleeding, infection, arrhythmia, stroke, worsening kidney function, blood loss, groin hematoma, limb loss, emergency coronary artery bypass grafting, and even were discussed with the patient and all questions were answered. The patient understood and wished to proceed. Time out called, patient name, date of , medical record number, allergies, procedure performed, identify Java Mobile Developer, patient and staff member concurred with accurate data, procedure carried on. Findings: LEFT HEART CATHETERIZATION FINDINGS: 1. Left main: The left main coronary artery is widely patent without any significant obstructive disease. 2. Left anterior descending: The mid LAD has mild 30-40% disease. Rest of the LAD and the diagonal vessels have mild luminal irregularities without any significant obstructive angiographic disease. 3. Left circumflex: The distal left circumflex stent is widely patent. Rest of the left circumflex artery and the main marginal branches have mild luminal irregularities without any significant obstructive angiographic disease. 4. Right coronary artery: The proximal RCA has a moderate 50-60% stenosis, which appears angiographically unchanged from prior angiogram. The distal RCA has mild 20-30% plaque. Rest of the RCA has mild luminal irregularities without any significant obstructive angiographic disease. The RCA is the dominant vessel. 5. Left ventricle: A. End-diastolic pressure 13 mmHg. B. LV gram deferred. C. No significant gradient across aortic valve on catheter pullback. Description of Procedure: Informed consent signed and placed in the chart. Patient transferred to forestry laborer room. Prepped and draped in usual sterile fashion. 2% lidocaine injected subcutaneously in right wrist area. 22-gauge venipuncture catheter used to access the right radial artery with the Seldinger technique. 6-FR slender sheath placed in right radial artery. Nitroglycerine and Cardene was given intraarterial through the sheath. Glidewire wire advanced under fluoroscopy 5F Tig 4 diagnostic catheter engaged Left Main Coronary Artery. 5F Tig 4 diagnostic catheter engaged Right Coronary Artery Multiple orthogonal angiogram obtained and reviewed 5F Pigtail diagnostic catheter crossed aortic valve to obtain LVEDP, LV angiogram deferred. Hemostasis was achieved by application of TR band. ? Assessment: Widely patent distal
--- NOTE | 2022-08-05 17:47 | PC.NURSE ---
[id number] This patient, Rafy Sommer, was admitted to Intensive Care Unit-7. Patient/family oriented to hospital policies and general routines including ID bracelet, bed and alarms, visiting hours, pain management, procedures, bathroom and other care routines, personal items, smoking policy, room service/diet, and visiting hours. Information on how to activate the Rapid Response Team has been discussed. Patient/Family are encouraged to report perceived risks to care and to ask questions if they do not understand what they are told or what they should do.
[2022-08-05] MEDS: SODIUM CHLORIDE 0.9% IV 1,000 ML 125 ML IV CONT (18:13)
[2022-08-05 19:03] LABS: Troponin I < 0.012 ng/mL (0.000-0.034)
[2022-08-05 20:01] LABS: Glucose Point of Care 175 mg/dl (65-105)
[2022-08-05] MEDS: HYDROcodone/acetaminophen (*CRX) 5-325 MG TABLET 1 TAB PO (20:45)
[2022-08-05] MEDS: METOPROLOL TARTRATE 25 MG TABLET PO (20:45)
[2022-08-05] MEDS: MELATONIN 5 MG TABLET PO (21:19)
[2022-08-05] MEDS: GABAPENTIN 300 MG CAPSULE 600 MG PO (21:19)
[2022-08-05 22:53] LABS: Troponin I < 0.012 ng/mL (0.000-0.034)
[2022-08-06] VITALS (8 sets, daily range): BP systolic 105–125; BP diastolic 71–79; PULSE 52–65; RESP 12–21; TEMP 36.4–36.6; O2SAT 97–99
[2022-08-06 06:39] LABS: Hematocrit 39.8 % (42.0-52.0); Hemoglobin 13.5 g/dL (14.0-18.0); Mean Corpuscular HGB Conc 33.9 g/dl (32-36); Mean Corpuscular Hemoglobin 31.2 pg (26-34); Mean Corpuscular Volume 91.9 fl (80-100); Mean Platelet Volume 10.8 fl (7.4-10.4); Platelet Count Result 190 k/mm3 (150-375); Red Blood Count 4.33 M/mm3 (4.6-6.20); Red Cell Distribution Width 11.9 % (11.5-14.5); White Blood Count 10.6 K/mm3 (4.5-10.0)
[2022-08-06 07:09] LABS: Anion Gap 10 mmol/L (8-16); Blood Urea Nitrogen 16 mg/dL (9-20); Calcium 8.8 mg/dL (8.4-10.2); Carbon Dioxide 24 mmol/L (22-30); Chloride 104 mmol/L (98-107); Estimated CRCL calculation 114 ml/min; Estimated Glomerular Filt Rate > 60; Glucose 160 mg/dL (65-110); Potassium 4.1 mmol/L (3.4-5.0); Sodium 138 mmol/L (137-145)
[2022-08-06] MEDS: ROSUVASTATIN 10 MG TABLET 20 MG PO (08:22)
[2022-08-06] MEDS: LOSARTAN POTASSIUM 12.5 MG TABLET PO (08:22)
[2022-08-06] MEDS: TICAGRELOR 90 MG TABLET PO (08:22)
[2022-08-06] MEDS: METOPROLOL TARTRATE 25 MG TABLET PO (08:22)
[2022-08-06] MEDS: ASPIRIN 81 MG ENTERIC TABLET PO (08:22)
--- NOTE | 2022-08-06 08:59 | WPDCNINT ---
Assessment and Plan Assessment and plan (1) Chest pain: Code(s): R07.9 - Chest pain, unspecified Status: Acute Assessment and Plan: Patient admitted with chest pain yesterday and EKG suggested ST segment elevation VA. patient was taken to cardiac catheterization lab and cardiac catheterization showed Non-obstructive coronary artery disease with widely patent distal LCX stent. Left ventricular end-diastolic pressure of 13mmHg His troponins were negative Chest pain could be noncardiac and has resolved at this time Continue aspirin and Brilinta Continue statin ARB and beta-maribeth (2) Tooth infection: Code(s): K04.7 - Periapical abscess without sinus Status: Acute Assessment and Plan: Patient is scheduled to see oral surgeon as an outpatient. He has finished a course of antibiotics P.r.n. analgesic ordered (3) Coronary artery disease: Code(s): I25.10 - Atherosclerotic heart disease of [place] coronary artery without angina pectoris Status: Acute Assessment and Plan: See above (4) Diabetes mellitus: Code(s): E11.9 - Type 2 diabetes mellitus without complications Status: Acute Assessment and Plan: Continue metformin Add sliding scale (5) Hypercholesterolemia: Code(s): E78.00 - Pure hypercholesterolemia, unspecified Status: Acute Assessment and Plan: Continue Crestor (6) Hypertension: Code(s): I10 - Essential (primary) hypertension Status: Acute Assessment and Plan: Patient is on beta-maribeth and losartan Plan DVT prophylaxis -patient is going to ambulate Nutrition -heart healthy diet Transfer out of ICU today Broadcast Operations Technician Consult Note Consult date: 08/06/22 Reason for consult: Chest pain HPI: Rafy Sommer is a 51 year old male with past medical history of CAD s/p LCX PCI in 01/2022 for NSTEMI, hypertension, hyperlipidemia, type 2 diabetes who presented to outpatient Cardiology Clinic at [place] yesterday for visit with Dr. Knight. Patient states that he ate tacos day before yesterday and then in the middle of night he woke up and had episode of vomiting. He also was taking antibiotics for his dental infection. He told me that his son was sick the day before and was also vomiting. Later in the day when he was working he had a pain in his chest she was sharp, 2/10, in the middle of chest with no radiation, no nausea vomiting at this time, no dyspnea diaphoresis or palpitations. Pain resolved spontaneously. He mentioned these symptoms to the clinical molecular geneticist in the clinic. ECG done in clinic was concerning for possible STEMI with ST elevation in 1 and AVL with depressions in the inferior leads. Given these findings STEMI was activated and patient was taken to cardiac catheterization lab. Emergent cardiac cath was done which showed widely patent distal LCX stent, otherwise NOCAD. LVEDP 13mmHg. Postprocedure patient was transferred to ICU for further evaluation management. At this time patient denies any chest pain. Is only complaint is right lower toothache which he rates at 5/10. Pain has been going on for 2 weeks. He has met with dentist who has referred him to oral surgeon due to his cardiac history and he is awaiting for that tooth to be removed.. All other systems were reviewed and were negative Review of Systems Review of Systems: All systems reviewed & are unremarkable except as noted in HPI and below (HPI) [facility], LAT[facility] Past Medical History Medical History Coronary artery disease Diabetes mellitus Hypercholesterolemia Surgical History Surgical History No pertinent past surgical history Family History Family History Father Diabetes mellitus Mother Hypertension Social History Social History Smoking packs
[2022-08-06] MEDS: HYDROcodone/acetaminophen (*CRX) 5-325 MG TABLET 1 TAB PO (09:17)
[2022-08-06] MEDS: metFORMIN HCL 500 MG TABLET 1000 MG PO (09:17)
--- NOTE | 2022-08-06 10:18 | PM.DS ---
DS: Admitting Diagnosis Discharge Date 08/06/2022 Admitting Diagnosis Chest pain, concern for STEMI DS: Discharge Diagnosis Discharge Diagnosis (1) Coronary artery disease: Code(s): I25.10 - Atherosclerotic heart disease of [place] coronary artery without angina pectoris Status: Acute (2) Hyperlipidemia associated with type 2 diabetes mellitus: Code(s): E11.69 - Type 2 diabetes mellitus with other specified complication; E78.5 - Hyperlipidemia, unspecified Status: Acute (3) Hypertension associated with diabetes: Code(s): E11.59 - Type 2 diabetes mellitus with other circulatory complications; I15.2 - Hypertension secondary to endocrine disorders Status: Acute (4) Diabetes mellitus: Code(s): E11.9 - Type 2 diabetes mellitus without complications Status: Acute DS: Summary Hospital Course Hospital Course: Patient presented to Cardiology Clinic yesterday to see Dr. Knight. He had complained of chest pain earlier in the day. ECG obtained in clinic concerning for possible high-lateral STEMI. Patient sent to the ED and then taken emergently to the laboratory apparatus glass blower. Cardiac cath showed NOCAD with widely patent stent. Patient admitted to the ICU post cath for post-cath recovery. No further episodes of chest pain. Has tooth pain. Ready for discharge this AM. Patient to follow back up with Dr. Knight. Time Spent with Patient Time attestation: Total time spent providing and/or coordinating discharge services: 40 minutes Exam Const: General: comfortable and no acute distress Neck: Neck: no JVD Resp: Effort & Inspection: normal respiratory effort Auscultation: clear to auscultation bilaterally Cardio: Rate: regular rate Rhythm: regular rhythm Heart sounds: no murmurs GI: GI Palp: Yes Soft to palpation and No Tenderness to palpation present (GI) Extrem: General: no edema Other: Radial access site without hematoma or bleeding. Non-tender upon palpation. Psych: Mental Status: mental status grossly normal DS: Data Data Completed and Pending Completed studies during hospitalization: Cardiac cath Labs on day of discharge: Labs from last 24 hours 08/06/22 08/06/22 08/05/22 06:29 06:29 22:04 WBC 10.6 H RBC 4.33 L Hgb 13.5 L Hct 39.8 L MCV 91.9 MCH 31.2 MCHC 33.9 RDW 11.9 Plt Count 190 MPV 10.8 H Immature Gran % (Auto) Neut % (Auto) Lymph % (Auto) [place] % (Auto) Eos % (Auto) Baso % (Auto) Lymph # (Auto) [place] # (Auto) Eos # (Auto) Baso # (Auto) Abs Immat Gran (auto) Absolute Neuts (auto) Absolute Nucleated RBC Nucleated RBC % PT INR APTT Sodium 138 Potassium 4.1 Chloride 104 Carbon Dioxide 24 Anion Gap 10 BUN 16 Creatinine 0.70 Estim Creat Clear Calc 114 Estimated GFR > 60 Glucose 160 H POC Capillary Glucose Calcium 8.8 Total Bilirubin AST ALT Alkaline Phosphatase Troponin I < 0.012 Total Protein Albumin Triglycerides Cholesterol LDL Cholesterol Direct HDL Direct Blood Type Antibody Screen 08/05/22 08/05/22 08/05/22 19:56 18:31 18:31 WBC RBC Hgb Hct MCV MCH MCHC RDW Plt Count MPV Immature Gran % (Auto) Neut % (Auto) Lymph % (Auto) [place] % (Auto) Eos % (Auto) Baso % (Auto) Lymph # (Auto) [place] # (Auto) Eos # (Auto) Baso # (Auto) Abs Immat Gran (auto) Absolute Neuts (auto) Absolute Nucleated RBC Nucleated RBC % PT INR APTT Sodium Potassium Chloride Carbon Dioxide Anion Gap BUN Creatinine Estim Creat Clear Calc Estimated GFR Glucose POC Capillary Glucose 175 H Calcium Total Bilirubin AST ALT Alkaline Phosphatase Troponin I < 0.012 Total Protein Albumin Triglycerides Cholesterol LDL Cholesterol Direct HDL Direct Blood Typ
== END 2022-08-06 11:05 | disposition home or self-care (01) | DRG 191 ==
LOC: ANHED 15:52 → ANHCATHLAB 16:10 → ANHED 17:07 → ANHICU 17:09
PROVIDERS: Admitting Provider Internal Medicine; Emergency Provider Emergency Medicine; PCP Physician Assistant; Visit Provider Internal Medicine
PROC: 4A023N7 Measurement of Cardiac Sampling and Pressure, Left Heart, Percutaneous Approach (ICD-10-PCS; CPT 93452; principal; 2022-08-05 16:00)
DX: I25.10 Atherosclerotic heart disease of native coronary artery without angina pectoris (principal); R07.89 Other chest pain; E11.59 Type 2 diabetes mellitus with other circulatory complications; E11.69 Type 2 diabetes mellitus with other specified complication; I15.2 Hypertension secondary to endocrine disorders; E78.00 Pure hypercholesterolemia, unspecified; K04.7 Periapical abscess without sinus; I25.2 Old myocardial infarction; I10 Essential (primary) hypertension; Z95.5 Presence of coronary angioplasty implant and graft; Z28.21 Immunization not carried out because of patient refusal; Z87.891 Personal history of nicotine dependence; Z79.84 Long term (current) use of oral hypoglycemic drugs; Z79.82 Long term (current) use of aspirin; Z88.0 Allergy status to penicillin
CPT/HCPCS: 36415; 80048; 80053; 80061; 82948; 84484; 85025; 85027; 85610; 85730; 86850; 86900; 86901; 93005; 93458; 99291; A9270; C1769; C1887; C1894; J1644; J2250; J3010; J7030; J7040

== ENCOUNTER 2022-12-23 11:32 | Emergency (ER) | payer OTHER, SELFPAY ==
[2022-12-23 11:58] VITALS: BP 133/84; PULSE 55; RESP 20; TEMP 36.3; O2SAT 100
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
== END 2022-12-23 12:48 | disposition home or self-care (01) ==
PROVIDERS: Emergency Provider Nurse Practitioner Family; PCP Physician Assistant
DX: S05.01XA Injury of conjunctiva and corneal abrasion without foreign body, right eye, initial encounter (principal); E11.9 Type 2 diabetes mellitus without complications; I25.10 Atherosclerotic heart disease of native coronary artery without angina pectoris; F17.210 Nicotine dependence, cigarettes, uncomplicated; V89.2XXA Person injured in unspecified motor-vehicle accident, traffic, initial encounter; W22.10XA Striking against or struck by unspecified automobile airbag, initial encounter
CPT/HCPCS: 99213; A9270; G0463